=== PATIENT | male | born 1980 | race Caucasian/White ===

== ENCOUNTER 2016-11-19 23:29 | Emergency (ER) | payer MEDICAID ==
[~2016-11-19] VITALS: Ht 170.2 cm; Wt 63.5 kg
[2016-11-19 23:39] VITALS: BP 148/94
[2016-11-20 00:49] LABS: Basophils # (auto) 0.1 uL; Basophils % (auto) 1.2 % (0.0-2.0); CONDITION Y; Eosinophils # (auto) 0.2 uL; Eosinophils % (auto) 1.9 % (0.0-7.0); Hematocrit 41.5 % (41.0-53.0); Lymphocytes # (auto) 2.4 uL; Lymphocytes % (auto) 28.1 % (10.0-50.0); Mean Corpuscular Hemoglobin 30.3 pg (28.0-32.0); Mean Corpuscular Hgb Conc. 33.8 g/dL (32.0-36.0); Mean Corpuscular Volume 89.8 fL (80.0-100.0); Mean Platelet Volume 10.3 fL (7.4-10.4); Monocytes # (auto) 0.9 uL; Monocytes % (auto) 10.4 % (0.0-12.0); Neutrophils # (auto) 4.9 uL; Neutrophils % (auto) 58.4 % (37.0-80.0); Platelet Count (auto) 247 10^3/uL (140-450); Red Cell Distribution Width 14.5 % (11.6-16.0); White Blood Cell 8.5 10^3/uL (4.4-10.8)
[2016-11-20 01:20] LABS: Albumin 4.3 g/dL (3.4-5.0); Anion Gap 10 (5-15); Aspartate Aminotransferase 28 U/L (15-37); BUN/Creatinine Ratio 19.8; Blood Urea Nitrogen 22 mg/dL (7-18); Calcium 8.6 mg/dL (8.5-10.1); Carbon Dioxide 26 mmol/L (21-32); Chloride 107 mmol/L (98-107); GFR African American 96 mL/min; GFR Non-African American 79 mL/min; Glucose 76 mg/dL (74-106); Potassium 3.7 mmol/L (3.5-5.1); Sodium 143 mmol/L (136-145)
[2016-11-20 01:22] LABS: Alkaline Phosphatase 115 U/L (45-117); Bilirubin, Total 0.9 mg/dL (0.2-1.0); Total Protein 8.1 g/dL (6.4-8.2)
== END 2016-11-20 03:36 | disposition left against medical advice (07) ==
LOC: EDBD 23:29 → ER 23:53
DX: F41.9 Anxiety disorder, unspecified (principal); Z53.21 Procedure and treatment not carried out due to patient leaving prior to being seen by health care provider
CPT/HCPCS: 36415; 80053; 80320; 85025

== ENCOUNTER 2016-12-29 11:44 | Emergency (ER) | payer MEDICAID ==
[~2016-12-29] VITALS: Ht 175.3 cm; Wt 65.8 kg
[2016-12-29 11:55] VITALS: BP 114/69
[2016-12-29] MEDS ORDERED: KETOROLAC TROMETH 60MG/2ML VIAL IM ONE (13:15)
== END 2016-12-29 13:51 | disposition home or self-care (01) ==
LOC: ER 11:44
DX: S80.01XA Contusion of right knee, initial encounter (principal); S50.311A Abrasion of right elbow, initial encounter; S70.211A Abrasion, right hip, initial encounter; F17.210 Nicotine dependence, cigarettes, uncomplicated; V19.9XXA Pedal cyclist (driver) (passenger) injured in unspecified traffic accident, initial encounter; Y93.89 Activity, other specified; Y99.8 Other external cause status; Y92.89 Other specified places as the place of occurrence of the external cause
CPT/HCPCS: 73080; 73090; 73562; 96372; 99284; J1885

== ENCOUNTER 2018-11-15 05:46 | Emergency (ER) | payer MEDICAID ==
[~2018-11-15] VITALS: Ht 170.2 cm; Wt 69.4 kg
[2018-11-15 06:08] VITALS: BP 140/93
== END 2018-11-15 07:10 | disposition left against medical advice (07) ==
LOC: EDBD 05:46 → ER 05:46
DX: R52 Pain, unspecified (principal); Z53.21 Procedure and treatment not carried out due to patient leaving prior to being seen by health care provider

== ENCOUNTER 2021-04-27 10:12 | Emergency (ER) | payer MEDICAID ==
[~2021-04-27] VITALS: Ht 175.3 cm; Wt 77.1 kg
[2021-04-27 12:52] VITALS: BP 124/96
== END 2021-04-27 13:34 | disposition home or self-care (01) ==
LOC: ER 10:12
DX: S63.501A Unspecified sprain of right wrist, initial encounter (principal); S50.01XA Contusion of right elbow, initial encounter; F17.210 Nicotine dependence, cigarettes, uncomplicated; F12.10 Cannabis abuse, uncomplicated; W18.09XA Striking against other object with subsequent fall, initial encounter; Y93.89 Activity, other specified; Y92.89 Other specified places as the place of occurrence of the external cause; Y99.8 Other external cause status
CPT/HCPCS: 29125; 73090

== ENCOUNTER 2024-12-23 06:15 | Emergency (ER) | payer MEDICAID ==
[~2024-12-23] VITALS: Ht 175.3 cm; Wt 74.6 kg
[2024-12-23 06:51] VITALS: PULSE 80; RESP 12; O2SAT 98
--- NOTE | 2024-12-23 07:18 | ED.PDOC ---
Musculoskeletal HPI Comments 44 year old male with a past medical history of depression, anxiety presents to the emergency department with a chief complaint of LT arm pain onset 3 weeks. Patient states he began experiencing LT arm numbness 3 weeks ago after moving a few boxes, since then has been experiencing sharp pain radiating from Lt elbow to Lt shoulder, Lt side neck. For the past week, pain has worsen. He also states he has been under stress recently. No other symptoms or modifying factors present at this time. Denies fevers chills night sweats nausea vomiting redness around the arm Denies previous surgeries to the arm or significant injury Denies changes, shortness of breath Chief Complaint: Upper Extremity Time Seen by MD: 07:00 Primary Care Provider: JESSI Ponce Notes: Nurses Notes, Medications, Allergies Allergies: Coded Allergies: NO KNOWN ALLERGIES (Unverified , 11/19/16) Home Meds Active Scripts Naproxen (Naproxen) 500 Mg Tab, 500 MG PO BIDPC for 10 Days, #20 TAB 0 Refills Prov:SHANAE FAN NP 12/23/24 Information Source: Patient Mode of Arrival: Ambulatory Location: Left Extremity Location: Arm Timing: Weeks Prehospital treatment: None Severity: Moderate Able to Move Extremity: Yes Bear Weight: Fully Pain: Moderate Mechanism: Spontaneous Circumstances: Spontaneous Onset of Symptoms: Spontaneous Symptoms: Pain DVT Risk Factors: NONE Associated signs and symptoms: Arm pain (LT) Past Medical History PAST MEDICAL HISTORY: Anxiety, Depression Surgical History: Denies all surgeries Family History Family History: Unknown Social History Smoker: Cigarettes, Less Than 1 Pack/Day Alcohol: Denies ETOH Use Drugs: Marijuana Lives In: Home All Other Systems: Reviewed and Negative (as per hpi) Physical Exam General Appearance: No Apparent Distress, Normal HEENT: Normal ENT Inspection, Pharynx Normal, TMs Normal Neck: Full Range of Motion, Non-Tender, Normal, Normal Inspection Respiratory: Chest Non-Tender, Lungs Clear, No Accessory Muscle Use, No Respiratory Distress, Normal Breath Sounds Cardiovascular: No Murmur, No Gallop, Regular Rate/Rhythm Breast Exam: Deferred Gastrointestinal: No Organomegaly, Non Tender, No Pulsatile Mass, Normal Bowel Sounds, Soft Genitalia: Deferred Pelvic: Deferred Rectal: Deferred Extremities: No calf tenderness, Normal capillary refill, No pedal edema Musculoskeletal : Location: Left Extremity Location: Elbow (no signs of deformity, erythema, swelling, TTP. Radial pulses 2+. passive/active ROM) Apperance: Normal Neurologic: Alert, it security specialist II-XII nml as Tested, No Motor Deficits, Normal Affect, Normal Mood, No Sensory Deficits Cerebellar Function: Normal Reflexes: Normal Skin: Dry, Normal Color, Warm Lymphatic: No Adenopathy Was a procedure done? Was a procedure done?: No Differential Diagnosis EXT Differential Diagnosis: Fracture, Sprain, Dislocation X-Ray, Labs, Meds, VS Vital Signs Date Time Temp Pulse Resp B/P (MAP) Pulse Ox O2 Delivery O2 Flow Rate FiO2 12/23/24 08:03 98.7 89 18 149/89 (109) 98 98.7 12/23/24 06:51 80 12 98 Room Air* 0 21 12/23/24 06:50 98.7 88 16 143/84 (103) 98 98.7 12/23/24 06:23 97.9 107 16 143/101 98 97.9 [place] [address] Ph: [phone] DIAGNOSTIC IMAGING Diagnostic Imaging Report : [id number] Signed PATIENT: MELVA ALTAMIRANO ACCT: [id number] UNIT: [id number] : 1980 LOC: ER ROOM / BED: / AGE / SEX: 44 / M ADM STATUS: REG ER SERVICE 3 ORDERING PHYSICIAN: SHANAE FAN NP PROCEDURE(s): LELB3 - L ELBOW 3 VIEW XRAY REASON: Pain ORDER NUMBER(s): [id number], ACCESSION NUMBER(s): [id number] EXAM: XY L ELBOW 3 VIEW XRAY HISTORY: Pain COMPARISON: None. TECHNIQUE: Three views of the left elbow were performed. FINDINGS: No acute fracture or effusion are identified about the left elbow. No significant degenerative changes. IMPRESSION: 1. No acute fracture or dislocation in the left elbow. ATED BY: LUNA SINGH MD DICTATED DATE/TIME: 12/23/24744 SIGNED BY: LUNA SINGH MD SIGNED DATE/TIME: 12/23/24744 CC: X-Ray, Labs, Meds, VS Comment 44 year old male with a past medical history of depression, anxiety presents to the emergency department with a chief complaint of LT arm pain onset 3 weeks. Patient arrives alert and oriented, ABC's intact, afebrile, vital signs stable, saturating well in room air Diagnostic imaging ordered by me and results interpreted by radiology : XY L ELBOW 3 VIEW: IMPRESSION: 1. No acute fracture or dislocation in the left elbow. History and examination consistent w/ sprain X-rays ordered, read by radiologist and reviewed by me. Imaging shows no acute findings There are no signs of arterial or nerve damage Take IBU or OTC Tylenol w/ food as needed for pain Recommended heat therapy Reviewed RICE management Avoid heavy lifting or strenuous activity Recommended range of motion exercises and limit heavy activity for 1 week If no improvement advised patient to return to the emergency department for follow-up. Discussed possibility of a occult fracture On reevaluation, patient had symptomatic improvement. Patient is stable for discharge at this time. External notes reviewed. Test results and diagnostic imaging interpreted. All diagnostic findings, discharge care, education and instructions provided Follow-up with PCP in 2 to 3 days Patient verbalized understanding and agreed to treatment plan Vital signs stable, afebrile, no acute distress noted Patient ambulatory with strong steady gait Advised to return precautions for any new or worsening symptoms, return to ER immediately for re-evaluation Patient is aware that the purpose of this visit was for an acute medical emergency requiring emergent stabilization. Chronic conditions, including malignancies have not been ruled out. Patient is instructed to follow up with PCP as directed and discharge instructions for continued care and workup. If unable to arrange follow-up, patient is to return to the emergency department for reassessment. Patient (parent or legal guardian if applicable) was given verbal and written discharge instructions and acknowledges understanding. Additional MDM Review of External, Non-ED records: External records reviewed. Discussion with independent historian (EMS, family) history obtained from the patient/parents (if applicable) at bedside Chronic conditions affecting care: depression, anxiety Social determinants of health affecting care: None Consideration of admission (observation or admission): I considered escalation of care to admission for this patient, however given the reassuring workup, the patient is safe for outpatient management. Time of 1ST Reevaluation: 07:30 Reevaluation 1ST: Improved Patient Education/Counseling: Diagnosis, Treatment Family Education/Counseling: No Family Present Departure 1 Departure Time of Disposition: 07:50 Impression: Primary Impression: Elbow pain Qualified Codes: M25.522 - Pain in left elbow Disposition: HOME / SELF CARE / HOMELESS Condition: Stable e-Prescriptions Naproxen (Naproxen) 500 Mg Tab 500 MG PO BIDPC for 10 Days, #20 TAB 0 Refills Prov: SHANAE FAN NP 12/23/24 Discharged With: Self Critical Care Note Critical Care Time?: No Stability Stability form required: No Heart Score Heart Score: Heart Score Response (Comments) Value History N/A 0 EKG N/A 0 Age N/A 0 Risk Factors N/A 0 Troponin N/A 0 Total 0 I personally scribed for SHANAE FAN REFERENCE ASSISTANT ([email or web address]) on 12/23/24 at 07:18. Electronically submitted by Jennifer Valadez ([email or web address]). I personally scribed for SHANAE FAN NP ([email or web address]) on 12/23/24 at 07:58. Electronically submitted by Jennifer Valadez ([email or web address]). SHANAE FAN NP Dec 23, 2024 07:18
--- NOTE | 2024-12-23 07:48 | DVH ---
EXAM: XY L ELBOW 3 VIEW XRAY HISTORY: Pain COMPARISON: None. TECHNIQUE: Three views of the left elbow were performed. FINDINGS: No acute fracture or effusion are identified about the left elbow. No significant degenerative change s. IMPRESSION: 1. No acute fracture or dislocation in the left elbow.
[2024-12-23] MEDS ORDERED: NAPR-746 PO (07:51)
[2024-12-23 08:03] VITALS: BP 149/89; PULSE 89; RESP 18; TEMP 98.7; O2SAT 98
== END 2024-12-23 08:04 | disposition home or self-care (01) ==
LOC: ER 06:15
DX: M25.522 Pain in left elbow (principal); F17.210 Nicotine dependence, cigarettes, uncomplicated; Z79.899 Other long term (current) drug therapy
CPT/HCPCS: 73080

== ENCOUNTER 2025-01-26 22:08 | Emergency (ER) | payer MEDICAID ==
[~2025-01-26] VITALS: Ht 175.3 cm; Wt 78.5 kg
[~2025-01-26 22:08] MED LIST: NAPR-746 PO
--- NOTE | 2025-01-26 22:42 | DVH ---
CLINICAL INDICATION: PAIN TECHNIQUE: XY L ELBOW 3 VIEW XRAY Comparison: XY L ELBOW 3 VIEW XRAY on DOS: 12/23/24, XR ELBOW COMPLETE RT on DOS: 05/06/21, R FOREARM XR AY on DOS: 04/27/21 FINDINGS/IMPRESSION: : There is no evidence of acute fracture or dislocation. Soft tissues are unremarkable.
--- NOTE | 2025-01-26 23:05 | ED.PDOC ---
History of Present Illness HPI Comments 44 y/o M presents with c/c of left elbow pain. Endorsement of atraumatic and unprovoked onset, this evening. Patient will reports left-sided neck pain into the shoulder he notes history of spinal surgery in his neck. Denial of any numbness, tingling, or further associated symptoms. Chief Complaint: Upper Extremity Time Seen by MD: 23:00 Primary Care Provider: JESIS Ponce Notes: Nurses Notes, Medications, Allergies Allergies: Coded Allergies: NO KNOWN ALLERGIES (Unverified , 11/19/16) Home Meds Active Scripts Naproxen (Naproxen) 500 Mg Tab, 500 MG PO BIDPC for 10 Days, #20 TAB 0 Refills Prov:MITAXAVIER ANGLINJoseph Marshall BOILING HOUSE OILER 12/23/24 Information Source: Patient Mode of Arrival: Ambulatory Severity: Moderate Timing: Hours Duration: Since onset Prehospital treatment: None Past Medical History PAST MEDICAL HISTORY: Anxiety, Depression Surgical History: Denies all surgeries Family History Family History: Unknown Social History Smoker: Cigarettes, Less Than 1 Pack/Day Alcohol: Denies ETOH Use Drugs: Marijuana Lives In: Home All Other Systems: Reviewed and Negative (As per HPI) Physical Exam General Appearance: No Apparent Distress, Normal HEENT: Pharynx Normal Neck: Limited Range of Motion, Tender Lateral (Moderate tenderness against resistance to left) Respiratory: Chest Non-Tender, Lungs Clear, No Accessory Muscle Use, No Respiratory Distress, Normal Breath Sounds Cardiovascular: No Edema, No JVD, No Murmur, No Gallop, Normal Peripheral Pulses, Regular Rate/Rhythm Breast Exam: Deferred Gastrointestinal: No Organomegaly, Non Tender, No Pulsatile Mass, Normal Bowel Sounds, Soft Genitalia: Deferred Pelvic: Deferred Rectal: Deferred Extremities: No calf tenderness, Normal capillary refill, Normal inspection, Normal range of motion, Non-tender, No pedal edema Musculoskeletal : Apperance: Normal Neurologic: Alert, avionics supervisor II-XII nml as Tested, No Motor Deficits, Normal Affect, Normal Mood, No Sensory Deficits Cerebellar Function: Normal Reflexes: Normal Skin: Dry, Normal Color, Warm Lymphatic: No Adenopathy Was a procedure done? Was a procedure done?: No Differential Dx Considerations may include: fracture, contusion, sprain, musculoskeletal pain, among others X-Ray, Labs, Meds, VS Vital Signs Date Time Temp Pulse Resp B/P (MAP) Pulse Ox O2 Delivery O2 Flow Rate FiO2 01/26/25 22:09 99.2 108 20 138/[address] [address] Ph: [phone] DIAGNOSTIC IMAGING Diagnostic Imaging Report : [id number] Signed PATIENT: MELVA ALTAMIRANO ACCT: [id number] UNIT: [id number] : 1980 LOC: ER ROOM / BED: / AGE / SEX: 44 / M ADM STATUS: REG ER SERVICE 14 ORDERING PHYSICIAN: RYAN RAMOS PROCEDURE(s): LELB3 - L ELBOW 3 VIEW XRAY REASON: PAIN ORDER NUMBER(s): [id number], ACCESSION NUMBER(s): [id number] CLINICAL INDICATION: PAIN TECHNIQUE: XY L ELBOW 3 VIEW XRAY Comparison: XY L ELBOW 3 VIEW XRAY on DOS: 12/23/24, XR ELBOW COMPLETE RT on DOS: 05/06/21, R FOREARM XRAY on DOS: 04/27/21 FINDINGS/IMPRESSION: : There is no evidence of acute fracture or dislocation. Soft tissues are unremarkable. ATED BY: BRYSON PRESTON MD DICTATED DATE/TIME: 01/26/252239 SIGNED BY: BRYSON PRESTON MD SIGNED DATE/TIME: 01/26/252239 CC: X-Ray, Labs, Meds, VS Comment FINDINGS: No evidence of definite acute fracture, spinal dislocation, or significant appearing acute subluxation is seen. 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 No obvious significant spinal stenosis. IMPRESSION: No definite CT evidence of acute abnormality in the cervical spine. Likely cervical in nature patient given Toradol and Decadron reports some improvement requesting discharge at this time. Script trial of Medrol Dosepak and muscle relaxer. Advised take medication as prescribed side effects discussed. Advised to alternate between ice and heat. Advised to follow up with his PCP in 2-3 days consider referral to pain management and outpatient MRI if symptoms persist. ER return precautions given patient indicates understanding and agrees with discharge plan of care. Time of 1ST Reevaluation: 23:30 Reevaluation 1ST: Unchanged Time of 2ND Reevaluation: 00:49 Reevaluation 2ND: Improved Patient Education/Counseling: Need For Follow Up Family Education/Counseling: No Family Present SEPSIS Sepsis Screen Date sepsis recognized/suspect: Jan 26, 2025 Time Sepsis recognized/suspect: 2208 Recent Procedure: No Respiratory Rate >20: No Heart Rate >90: Yes Temp<36 C (96.8 F) or >38.3 C: No SBP <90 or MAP <65 mmHG: No New Acute Mental Status Change: No Is the patient on CPAP, BIPAP,: No Physician Orders L Elbow 3 View Xray (01/26/25 22:15) Cervical Without Contrast (01/26/25 23:53) Vital Signs Date Time Temp Pulse Resp B/P (MAP) Pulse Ox O2 Delivery O2 Flow Rate FiO2 01/26/25 22:09 99.2 108 20 138/87 98 99.2 Departure 1 Departure Time of Disposition: 00:49 Impression: Primary Impression: Cervical radiculopathy Disposition: 01 HOME / SELF CARE / HOMELESS Condition: Stable e-Prescriptions Tizanidine Hydrochloride (Tizanidine Hcl) 4 Mg Tab 4 MG PO BID PRN for 7 Days, #14 TAB Prov: RYAN RAMOS 01/27/25 Methylprednisolone (Medrol Dosepak) 4 Mg Trey 4 MG PO UD for 6 Days, #21 TAB UAD Prov: RYAN RAMOS [facility] 01/27/25 Discharged With: Self Critical Care Note Critical Care Time?: No Stability Stability form required: No Heart Score Heart Score: Heart Score Response (Comments) Value History N/A 0 EKG N/A 0 Age N/A 0 Risk Factors N/A 0 Troponin N/A 0 Total 0 I personally scribed for ER ([email or web address]) on 01/26/25 at 23:05. Electronically submitted by Nicolas Vences [email or web address]). ER Jan 26, 2025 23:05 RYAN RAMOS [facility] Jan 27, 2025 00:50
--- NOTE | 2025-01-27 00:25 | DVH ---
EXAM: CT CERVICAL WITHOUT CONTRAST HISTORY: Neck pain with Left arm pain and weakness COMPARISON: None CTDIvol 19.76 mGy, DLP 515.81 mGy*cm. TECHNIQUE: Multiple axial CT images of the spine were obtained using bone algorithm. Axial and holm l reformatting was done. Bone and soft tissue windows were reviewed. FINDINGS: No evidence of definite acute fracture, spinal dislocation, or significant appearing acute subluxatio n is seen. Moderate degenerative disease throughout the mid lower cervical spine with disc height loss and poste rior disc osteophyte complexes. No obvious significant spinal stenosis. IMPRESSION: No definite CT evidence of acute abnormality in the cervical spine.
[2025-01-27] MEDS ORDERED: METH4PAK PO (00:50)
[2025-01-27] MEDS ORDERED: TIZA-142 PO (00:50)
[2025-01-27 01:34] VITALS: BP 116/82; TEMP 98.1
[2025-01-27] MEDS: KETOROLAC TROMETH 60MG/2ML VIAL IM ONE (01:42)
[2025-01-27] MEDS: HYDROcodone-ACET 5/325MG TAB PO ONE (01:43)
[2025-01-27 02:00] VITALS: PULSE 72; RESP 14; O2SAT 98
== END 2025-01-27 02:25 | disposition home or self-care (01) ==
LOC: ER 22:08
DX: M54.12 Radiculopathy, cervical region (principal); M25.522 Pain in left elbow; F17.210 Nicotine dependence, cigarettes, uncomplicated; F12.90 Cannabis use, unspecified, uncomplicated; Z98.890 Other specified postprocedural states
CPT/HCPCS: 72125; 73080; 96372; 99285; J1100; J1885